=== PATIENT | female | born 1960 ===

== ENCOUNTER 2018-10-05 08:29 | Outpatient (CLI) | payer OTHER | END 2018-10-05 08:34 | disposition home or self-care (01) | LOC: SONOGRAMA 08:29 | DX: E04.1 Nontoxic single thyroid nodule (principal) ==

== ENCOUNTER 2018-10-05 09:16 | Outpatient (CLI) | payer OTHER | END 2018-10-05 09:29 | disposition home or self-care (01) | LOC: LAB 09:16 | DX: E78.49 Other hyperlipidemia (principal); E55.9 Vitamin D deficiency, unspecified; R73.03 Prediabetes; E78.2 Mixed hyperlipidemia; E04.1 Nontoxic single thyroid nodule ==

== ENCOUNTER 2021-05-07 08:36 | Outpatient (CLI) | payer OTHER | END 2021-05-07 08:39 | disposition home or self-care (01) | LOC: LAB 08:36 | PROVIDERS: ATTEND General Practice | DX: Z20.822 Contact with and (suspected) exposure to COVID-19 (principal) ==